=== PATIENT | male | born 1930 | race Caucasian/White ===

== ENCOUNTER 2017-03-28 13:09 | Inpatient (IN) | payer OTHER ==
[~2017-03-28] VITALS: Ht 160 cm; Wt 71.7 kg
[~2017-03-28 13:09] MED LIST: ACET-3820 PO; ATA25 PO; CLOP75TA PO; ESOM20EC PO; METO-50 PO; ORE25 PO; SIMV20TA1 PO; TRAZ-289 PO
[2017-03-28 13:23] VITALS: BP 113/61
--- NOTE | 2017-03-28 13:30 | NUR ---
PATIENT PRESENTS TO ED WITH brought in by SAMUEL Mehta from [facility] c/o general weakness, poor PO intake;hx OF AMS, Dementia, Impulse Disorder, Metabolic Encephalopathy, Htn;SKIN IS PINK/WARM/DRY;CONFUSE; TACHYCARDIC;PATIENT STATES PAIN OF 0/10 AT THIS TIME; PATIENT POSITIONED FOR COMFORT; HOB ELEVATED; BEDRAILS UP X2; BED DOWN. ALL MONITORS IN PLACED.
[2017-03-28] MEDS ORDERED: DEPSPR125 PO (13:32)
[2017-03-28] MEDS ORDERED: DOCU-264 PO (13:35)
[2017-03-28] MEDS ORDERED: TEMA15CA24 PO (13:35)
[2017-03-28] MEDS ORDERED: BENZ1TAB24 PO (13:35)
[2017-03-28 13:37] LABS: BASOPHILS # (AUTO) 0.4 K/uL (0.00-0.22); BASOPHILS % (AUTO) 3.1 % (0.0-2.0); EOSINOPHILS # (AUTO) 0.1 K/uL (0-0.4); EOSINOPHILS % (AUTO) 0.7 % (0.0-4.0); HEMATOCRIT 42.5 % (36-52); HEMOGLOBIN 13.8 g/dL (12.0-18.0); LYMPHOCYTES # (AUTO) 1.9 K/uL (2.0-11.5); LYMPHOCYTES % (AUTO) 15.5 % (20.5-51.1); MEAN CORPUSCULAR HEMOGLOBIN 32 pg (27-31); MEAN CORPUSCULAR HGB CONC 33 g/dL (33-37); MEAN CORPUSCULAR VOLUME 97 fL (80-94); MONOCYTES # (AUTO) 0.6 K/uL (0.8-1.0); NEUTROPHILS # (AUTO) 9.1 K/uL (1.8-7.7); NEUTROPHILS % (AUTO) 75.7 % (42.2-75.2); PLATELET COUNT (AUTO) 397 K/uL (140-450); RED BLOOD CELL COUNT(AUTO) 4.38 MIL/uL (4.20-6.10); RED CELL DISTRIBUTION WIDTH 13.1 % (11.6-13.7); WHITE BLOOD COUNT (AUTO) 12.1 K/uL (4.8-10.8)
[2017-03-28] MEDS ORDERED: MULT-1869 PO (13:38)
[2017-03-28] MEDS ORDERED: NACL 0.9% 1,000 ML IV ONE ×2 (13:50→15:20)
[2017-03-28 13:52] LABS: ANION GAP 16.8 (8-16); CALCIUM 8.7 mg/dL (8.5-10.1); CARBON DIOXIDE 23.8 mmol/L (21-32); CHLORIDE 103 mmol/L (98-107); CREATININE 1.1 mg/dL (0.7-1.3); GLUCOSE 135 mg/dL (74-106); POTASSIUM 4.6 mmol/L (3.5-5.1); SODIUM SERUM 139 mmol/L (136-145); UREA NITROGEN, BLOOD 22 mg/dL (7-18)
[2017-03-28 14:00] LABS: INR 1.1 (0.8-1.2); PARTIAL THROMBOPLASTIN TIME 30.9 secs (22-35.6); PROTHROMBIN TIME 11.2 secs (10.8-13.4)
[2017-03-28 14:11] LABS: ALANINE AMINOTRANSFERASE 23 U/L (16-63); ALBUMIN 2.7 g/dL (3.4-5.0); ALKALINE PHOSPHATASE 92 U/L (46-116); ASPARTATE AMINOTRANSFERASE 30 U/L (15-37); TOTAL BILIRUBIN 0.7 mg/dL (0.0-1.0); TOTAL PROTEIN, SERUM 9.4 g/dL (6.4-8.2)
[2017-03-28] MEDS ORDERED: cefTRIAXone 1,000 MG VIAL ONE (14:15)
[2017-03-28] MEDS ORDERED: AZITHROMYCIN 500 MG in DEXTROSE 5% 250 ML IV ONE (14:20)
[2017-03-28 14:26] LABS: LACTIC ACID 2.7 mmol/L (0.4-2.0)
--- NOTE | 2017-03-28 14:35 | NUR ---
PT SLEEPING;SAFETY MEASURES DONE;ALL MONIOTRS IN PLACED.WILL CONTINUE TO MONITOR PT.
[2017-03-28] MEDS ORDERED: AZITHROMYCIN 500 MG INJ VIAL IV ONE (14:59)
[2017-03-28 15:10] LABS: BILIRUBIN,URINE NEGATIVE (NEGATIVE); BLOOD, URINE 1+ (NEGATIVE); COLOR,URINE YELLOW (YELLOW); LEUKOCYTE ESTERASE ,URINE NEGATIVE (NEGATIVE); NITRITE, URINE NEGATIVE (NEGATIVE); PROTEIN,URINE 2+ (NEGATIVE); UGLUCOSE NEGATIVE (NEGATIVE)
--- NOTE | 2017-03-28 15:14 | NUR ---
PT C/O RIB PAIN, MD NOTIFIED FAMILY AT BEDSIDE, PT REMAINS TACHYCARDIA HR 150'S AFEBRILE DISPO IS ADMIT AWAITS AVAILABLE BED
[2017-03-28 15:19] LABS: APPEARANCE,URINE CLOUDY (CLEAR)
[2017-03-28 15:21] LABS: BACTERIA,URINE 4+ /HPF (None Seen); RBC,URINE 15-30 /HPF (0-5); SQUAMOUS EPITHELIAL CELL,UR 0-5 /LPF (0-3 (FEW))
[2017-03-28] MEDS ORDERED: NACL 0.9% 1,000 ML IV SCH (15:38)
[2017-03-28] MEDS ORDERED: ZOLPIDEM 5 MG TAB PO PRN (15:40)
[2017-03-28] MEDS ORDERED: MORPHINE SULFATE 2 MG/ML SYR IVP PRN ×2 (15:40→16:10)
[2017-03-28] MEDS ORDERED: DOCUSATE SODIUM 100 MG GELCAP PO PRN ×2 (15:40→16:10)
[2017-03-28] MEDS ORDERED: KETOROLAC 30 MG/ML VIAL IVP PRN ×2 (15:40→16:10)
[2017-03-28] MEDS ORDERED: oxyCODONE/APAP 5/325 MG 1 TAB TAB PO PRN ×4 (15:40→16:10)
[2017-03-28] MEDS ORDERED: LORazepam 1 MG TAB PO PRN ×2 (15:40→16:10)
[2017-03-28] MEDS ORDERED: ACETAMINOPHEN 325 MG TAB PO PRN ×2 (15:40→16:10)
[2017-03-28] MEDS ORDERED: HYDROmorphone 1 MG/ML AMP IVP PRN ×4 (15:40→16:10)
[2017-03-28] MEDS ORDERED: TEMAZEPAM 15 MG CAP PO PRN (15:40)
[2017-03-28] MEDS ORDERED: ONDANSETRON 4 MG/2 ML VIAL IM/IVP PRN ×2 (15:40→16:10)
[2017-03-28] MEDS ORDERED: HYDROcodone/APAP 7.5/325 MG 1 TAB PO PRN ×2 (15:40→16:10)
--- NOTE | 2017-03-28 15:50 | NUR ---
PT RESTING ON BED;FAMILY AT BEDSIDE;ALL MONITORS IN PLACED;DUANE ANDREW DISTRESS NOTED;WILL CONTINUE TO MONITOR PT.
[2017-03-28 16:20] VITALS: BP 132/81
--- NOTE | 2017-03-28 16:20 | NUR ---
PT ADMITTED FROM ER, AWAKE ALERT X1 WITH PERIODS OF CONFUSION, NO SIGNS OF ACUTE DISTRESS. WITH O2 AT 2L VIA NC. ELEVATED HOB AT LEAST 30 DEGREES. SKIN IS WARM AND DRY, OFFLOAD TO PRESSURE AREAS. NO EPISODE OF ANY NAUSEA OR VOMITING, REECE CATHETER IN PLACE WITH NOTED 400ML OF CLOUDY YELLOW URINE. DENIES OF ANY PAIN OR DISCOMFORT AT THIS TIME. ALL NEEDS ATTENDED, SAFETY PRECAUTIONS MAINTAINED. CALL LIGHT WITHIN REACH.
--- NOTE | 2017-03-28 16:24 | NUR ---
Patient will be admitted to care of DR PANTOJA. Admited to TELE. Will go to room 112 A. Belongings list completed. Report to IRIS HERNANDEZ.
[2017-03-28 16:48] LABS: BLOOD GAS BASE EXCESS -6.3 mmol/L (-2.0-2.0); BLOOD GAS HCO3 16.5 mmol/L; BLOOD GAS PCO2 25.8 mmHg (20-50); BLOOD GAS PH 7.425 (7.35-7.45); BLOOD GAS PO2 84.6 mmHg
[2017-03-28 16:49] LABS: BLOOD GAS O2 SAT% 96.3 % (92.0-98.5)
[2017-03-28] MEDS ORDERED: DIVALPROEX SPRINKLES 125 MG CAPDR PO SCH (17:00)
[2017-03-28 17:22] LABS: CHOL/HDL RATIO 4.7 (1-4.5); MAGNESIUM 2.1 mg/dL (1.8-2.4); PHOSPHORUS 3.4 mg/dL (2.5-4.9); THYROID STIMULATING HORMONE 1.91 uIU/mL (0.34-3.74)
[2017-03-28] MEDS: NACL 0.9% 1,000 ML IV SCH (17:37)
[2017-03-28] MEDS ORDERED: ALBUTEROL SULFATE/IPRATROPIU 3 ML SOL IH PRN (18:45)
[2017-03-28] MEDS ORDERED: LACTOBACILLUS RHAMNOSUS GG 1 EACH CAP PO SCH (19:00)
--- NOTE | 2017-03-28 19:28 | NUR ---
PT ALERT AND RESPONSIVE, NO SIGNS OF ACUTE DISTRESS. ENDORSED TO ONCOMING FOREST PATROLMAN NURSE FOR CONTINUITY OF CARE.
--- NOTE | 2017-03-28 19:29 | NUR ---
RECEIVED REPORT FROM DAY RN FOR CONTINUITY OF CARE. PATIENT IS ALERT & ORIENTED X1, DISCUSSED PLAN OF CARE WITH FAMILY MEMBERS AT BEDSIDE, VERBALIZED UNDERSTANDING. SHIFT ASSESSMENT DONE, VITAL SIGNS STABLE AT THIS TIME. NO S/S OF RESPIRATORY DISTRESS NOTED ON 2L NC. FLACC-0. IV TO RT AC FLUSHED AND PATENT, IV LT AC INFUSING FLUIDS WELL. REECE CATHETER IN PLACE DRAINING SWETA COLORED URINE TO GRAVITY. SAFETY/ FALL PRECAUTIONS ENFORCED, BED IN LOWEST POSITION WITH BED ALARM ON. WILL CONTINUE TO MONITOR FREQUENTLY.
[2017-03-28 20:00] VITALS: BP 152/78
[2017-03-28] MEDS: LEVOFLOXACIN 750 MG/D5W PREMIX 150 ML IV SCH (20:49)
--- NOTE | 2017-03-28 20:52 | NUR ---
DUE MEDICATIONS ADMINISTERED, TOLERATED WELL. PATIENT IS CONFUSED PULLING AT IV LINE, WRAPPED IN KERLIX AND REORIENTED PATIENT. WILL CONTINUE TO MONITOR FREQUENTLY.
[2017-03-28] MEDS ORDERED: NON-FORMULARY ITEM (Trazodone HCl 50 MG) PO SCH (21:00)
[2017-03-28] MEDS ORDERED: BENZTROPINE 1 MG TAB PO SCH (21:00)
[2017-03-28] MEDS ORDERED: traZODone 50 MG TAB PO SCH (21:00)
[2017-03-28] MEDS ORDERED: METOPROLOL 50 MG TAB PO SCH (21:00)
[2017-03-28] MEDS ORDERED: SIMVASTATIN 20 MG TAB PO SCH (21:00)
--- NOTE | 2017-03-28 22:10 | NUR ---
PATIENT SLEEPING AT THIS TIME, NO S/S OF DISTRESS NOTED. WILL CONTINUE TO MONITOR.
--- NOTE | 2017-03-28 23:45 | NUR ---
PATIENT HAD INCREASED SECRETIONS NOTED, PAGED RT FOR BREATHING TREATMENT AND SUCTION. PATIENT VITAL SIGNS STABLE. WILL CONTINUE TO MONITOR FREQUENTLY.
[2017-03-29] VITALS: BP 119/39
--- NOTE | 2017-03-29 00:05 | NUR ---
PATIENT HR DOWN TO 150'S B/P TRENDING UP, RT CALLED FOR BREATHING TX. WILL CONTINUE TO MONITOR. Addendum: 03/30/17 at 0241 by Rosalina Krishna RN DISREGARD, WRONG DATE.
[2017-03-29] MEDS: NACL 0.9% 1,000 ML IV SCH ×2 (00:51→06:54)
[2017-03-29] MEDS: CLINDAMYCIN 300 MG in DEXTROSE 5% 50 ML IV SCH ×4 (00:51→17:00)
--- NOTE | 2017-03-29 01:30 | NUR ---
SPOKE TO MD REGARDING PATIENT COUGH AND DIET ORDER, WILL FOLLOW OUT ORDERS GIVEN.
[2017-03-29] MEDS ORDERED: guaiFENesin/CODEINE 100/10MG 5 ML UDC PO PRN (01:40)
--- NOTE | 2017-03-29 03:58 | NUR ---
VITAL SIGNS STABLE. PATIENT HAS INTERMITTENT COUGH WITH THICK WHITE SECRETIONS NOTED. SAFETY PRECAUTIONS ENFORCED, WILL CONTINUE TO MONITOR.
[2017-03-29 04:00] VITALS: BP 142/76
[2017-03-29] MEDS ORDERED: ALBUTEROL SULFATE/IPRATROPIU 3 ML SOL IH PRN ×2 (05:45→06:08)
--- NOTE | 2017-03-29 05:45 | NUR ---
DR. MORRISON IN TO SEE PATIENT, NOTED PT LABORED BREATHING AND CONGESTION, NEW ORDERS RECEIVED WILL FOLLOW OUT GIVEN. PAGED RT FOR BREATHING TREATMENT.
[2017-03-29 06:30] LABS: HEMATOCRIT 32.9 % (36-52); HEMOGLOBIN 11.1 g/dL (12.0-18.0); MEAN CORPUSCULAR HEMOGLOBIN 32 pg (27-31); MEAN CORPUSCULAR HGB CONC 34 g/dL (33-37); MEAN CORPUSCULAR VOLUME 96 fL (80-94); PLATELET COUNT (AUTO) 269 K/uL (140-450); RED BLOOD CELL COUNT(AUTO) 3.41 MIL/uL (4.20-6.10); RED CELL DISTRIBUTION WIDTH 12.7 % (11.6-13.7); WHITE BLOOD COUNT (AUTO) 8.9 K/uL (4.8-10.8)
--- NOTE | 2017-03-29 06:30 | NUR ---
CALLED DR. MORRISON, INFORMED HER THAT HR UP TO 129, MD IN TO SEE PATIENT AND NEW ORDERS GIVEN.
--- NOTE | 2017-03-29 06:56 | NUR ---
ADMINISTERED LASIX PER MD ORDER. FAMILY MEMBERS AT BEDSIDE.
[2017-03-29] MEDS ORDERED: HYDROCHLOROTHIAZIDE 25 MG TAB PO SCH ×3 (07:00→09:00)
[2017-03-29] MEDS ORDERED: FUROSEMIDE 40 MG/4 ML VIAL IVP SCH (07:00)
[2017-03-29] MEDS ORDERED: METOPROLOL 50 MG TAB PO SCH (07:00)
[2017-03-29 07:09] LABS: ALANINE AMINOTRANSFERASE 15 U/L (16-63); ALBUMIN 2.1 g/dL (3.4-5.0); ALKALINE PHOSPHATASE 69 U/L (46-116); ASPARTATE AMINOTRANSFERASE 19 U/L (15-37); CALCIUM 7.7 mg/dL (8.5-10.1); CARBON DIOXIDE 21.8 mmol/L (21-32); CHLORIDE 107 mmol/L (98-107); CREATININE 0.8 mg/dL (0.7-1.3); GLUCOSE 125 mg/dL (74-106); POTASSIUM 3.8 mmol/L (3.5-5.1); SODIUM SERUM 138 mmol/L (136-145); TOTAL BILIRUBIN 0.5 mg/dL (0.0-1.0); TOTAL PROTEIN, SERUM 7.3 g/dL (6.4-8.2); UREA NITROGEN, BLOOD 18 mg/dL (7-18)
--- NOTE | 2017-03-29 07:20 | NUR ---
ENDORSED PATIENT TO DAY RN AT BEDSIDE FOR CONTINUITY OF CARE.
--- NOTE | 2017-03-29 07:30 | NUR ---
REPORT RECEIVED FROM TELECOM NETWORK MANAGER, PT AWAKE, ALERT, OX1, CONFUSED AT BASELINE PER FAMILY AT BEDSIDE, STATING "I WANT BEER" IN [place], RESP EVEN, SLIGHTLY INCREASED WORK OF BREATHING, ON 2L NC O2, OS SAT 97@, RR 28, HR 120S, PT AGGITATED, BREATHSOUNDS COARSE CRACKLES THRUOUT, + WET COUGHS, MD AT BEDSIDE, REECE DRAINING CLEAR LIGHT YELLOW URINE, PT MOVES ALL EXT, PLAN OF CARE DISCUSSED, FAMILY VERBALIZED FULL UNDERSTANDING, WILL CONTINUE TO MONITOR
[2017-03-29] MEDS: ALBUTEROL SULFATE/IPRATROPIU 3 ML SOL IH SCH ×4 (07:50→19:39)
[2017-03-29] MEDS: BUDESONIDE 0.5 MG/2 ML NEBU INH SCH ×2 (07:50→19:39)
[2017-03-29 08:00] VITALS: BP 124/78
[2017-03-29 08:04] LABS: BAND % (MANUAL) 5 % (0-8); LYMPHOCYTES % (MANUAL) 9 % (20-46); MONOCYTES % (MANUAL) 9 % (5-12); NEUTROPHILS % (MANUAL) 77 (43-65); PLATELET ESTIMATE ADEQUATE
[2017-03-29] MEDS: LACTOBACILLUS RHAMNOSUS GG 1 EACH CAP PO SCH (08:16)
[2017-03-29] MEDS: PANTOPRAZOLE 40 MG INJ VIAL IVP SCH (08:16)
[2017-03-29] MEDS: METOPROLOL 50 MG TAB PO SCH ×2 (08:17→21:00)
--- NOTE | 2017-03-29 08:25 | NUR ---
EKG DONE AT BEDSIDE
--- NOTE | 2017-03-29 08:30 | NUR ---
DUE MEDS GIVEN, PILLS CRUSHED PT RICARDO WELL WITH APPLESAUCE, EXTENDED RELEASE MEDS NOT CRUSHED/GIVEN, WILL CONSULT MD FOR LIQ FORM.
[2017-03-29] MEDS: guaiFENesin 600 MG TABER PO SCH ×2 (08:31→20:47)
[2017-03-29] MEDS: MULTIVITAMIN/MINERALS 1 TAB PO SCH (08:31)
[2017-03-29] MEDS ORDERED: NON-FORMULARY ITEM (Multivit-Min/Iron Fum/Folic AC (Multi-Vitamin-Minerals Tablet) 1 TAB) PO SCH (09:00)
[2017-03-29] MEDS ORDERED: PANTOPRAZOLE 40 MG INJ VIAL IVP SCH (09:00)
[2017-03-29] MEDS ORDERED: CLOPIDOGREL 75 MG TAB PO SCH (09:00)
[2017-03-29 09:09] LABS: T4 (THYROXINE) 5.8 ug/dL (4.5-12.0)
--- NOTE | 2017-03-29 09:15 | NUR ---
PATIENT HAS BEEN SCREENED AND CATEGORIZED HIGH NUTRITION RISK. PATIENT WILL BE SEEN WITHIN 1-2 DAYS OF ADMISSION. 03/29/17-03/30/[address]
[2017-03-29] MEDS ORDERED: ACETYLCYSTEINE 10% (100 MG/ML) 100 MG/ML VIAL INH PRN (09:30)
[2017-03-29 10:17] LABS: HEMOGLOBIN A1C 5.8 % (4.8-5.6)
--- NOTE | 2017-03-29 10:49 | NUR ---
PT SLEEPING QUIELTY RESP LESS LABORIOUS, PT APPEARS IN NAD, HR DECREASED TO 108, PT REMAINS ON 2L NC 97% O2 SAT, FAMILY AT BEDSIDE, WILL CONTINUE TO MONITOR.
[2017-03-29] MEDS: DIVALPROEX SPRINKLES 125 MG CAPDR PO SCH ×3 (11:41→17:00)
[2017-03-29] MEDS: BENZTROPINE 1 MG TAB PO SCH ×2 (11:42→20:50)
[2017-03-29] MEDS: CLOPIDOGREL 75 MG TAB PO SCH (11:43)
--- NOTE | 2017-03-29 11:45 | NUR ---
ECHO PROCEDURE IN PROGRESS SUPERVISOR GRAIN AND YEAST PLANTS TO ATTEMPT HHN THERAPY AT AT LATER TIME NO SOB NOTED
[2017-03-29 12:00] VITALS: BP 133/81
--- NOTE | 2017-03-29 12:03 | NUR ---
REPEAT SPUTUM COLLECTION REQUESTED BY ALFREDO/RN RN AT BEDSIDE FOR ASSIST PRE AND POST OXYGENATION USED STERILE TECHNIQUE APPLIED LUBRICANT TO THE TIP OF A 14 FR SUCTION CATHETER INSERTION INTO LEFT NARES X2 OBTAINED LARGE THICK YELLOW WITH BLOOD TINGE SECRETIONS TOLERATED PROCEDURE WELL WITHOUT INCIDENT NOTED SPUTUM SAMPLE GIVEN TO ALFREDO/RN TO PROCESSING TO LAB
--- NOTE | 2017-03-29 12:16 | NUR ---
03/29/17 RD INITIAL ASSESSMENT COMPLETED PLEASE REFER TO NUTRITION ASSESSMENT UNDER CARE ACTIVITY FOR ESTIMATED NUTRITIONAL NEEDS. 1. CONTINUE PUREED, CARDIAC DIET 2. RECOMMEND HEALTHSHAKE TID AT MEAL TIMES 3. RD TO FOLLOW-UP 2-3 DAYS; HIGH RISK EPI BARLOW, ARABELLA
--- NOTE | 2017-03-29 12:24 | NUR ---
SUCTIONED BY RT, SPUTUM CULTURE COLLECTED.
--- NOTE | 2017-03-29 14:02 | NUR ---
DIAPER CHANGED, PERICARE DONE, PT POSITIONED FOR COMFORT, ORAL SUCTIONED THICK SPUTUM, AT BEDSIDE, WILL CONTINUE TO MONITOR.
[2017-03-29] MEDS ORDERED: VANCOMYCIN PER PHARMACY MC PRN (15:10)
--- NOTE | 2017-03-29 15:22 | NUR ---
DR THOMAS AT BEDSIDE, MD AWARE OF INCREASED HR 120'S, PT RESTING QUIETLY, REP EVEN SLIGHTLY LABORED, 97% 2L NC, FAMILY AT BEDSIDE, WILL CONTINUE TO MONITOR.
[2017-03-29 16:00] VITALS: BP 123/78
--- NOTE | 2017-03-29 17:07 | NUR ---
TA TEMP NORMAL BUT PT WARM TO TOUCH, SLIGHTLY SWEATY, HR INCREASED TO 130'S, PT MAYBE IN PAIN PER FAMILY, NORCO GIVEN, PT RICARDO MED WITH APPLESAUCE WELL, DIAPER CHANGED, WILL CONTINUE TO MONITOR
--- NOTE | 2017-03-29 18:09 | NUR ---
PT RESTING/SLEEPING QUIETLY, RESP EVEN UNLABORED NOW, REMAINS ON 2L NC, O2 SAT 97%, HR DOWN TO LOW 120'S, FAMILY AT BEDSIDE, CALL INTERIANO WITHIN REACH, WILL CONTINUE TO MONITOR.
--- NOTE | 2017-03-29 19:25 | NUR ---
REPORT GIVEN TO TOW MOTOR DRIVER NURSE, PT IN STABLE CONDITION.
--- NOTE | 2017-03-29 19:26 | NUR ---
RECEIVED REPORT FROM DAY RN FOR CONTINUITY OF CARE. PATIENT IS ALERT & ORIENTED X1, DISCUSSED PLAN OF CARE WITH FAMILY MEMBERS AT BEDSIDE. SHIFT ASSESSMENT DONE, VITAL SIGNS STABLE AT THIS TIME. PATIENT HAS LABORED BREATHING ON 3L NC WITH O2 SAT BETWEEN 94-98%, MD AWARE. FLACC-0. IV TO RT AC FLUSHED AND PATENT, IV LT AC INFUSING FLUIDS WELL. REECE CATHETER IN PLACE DRAINING CLEAR YELLOW URINE TO GRAVITY. SAFETY/ FALL PRECAUTIONS ENFORCED, BED IN LOWEST POSITION WITH BED ALARM ON. WILL CONTINUE TO MONITOR FREQUENTLY.
[2017-03-29 20:00] VITALS: BP 108/52
[2017-03-29] MEDS: SIMVASTATIN 20 MG TAB PO SCH (20:50)
[2017-03-29] MEDS: traZODone 50 MG TAB PO SCH (20:50)
--- NOTE | 2017-03-29 20:52 | NUR ---
DUE MEDICATIONS ADMINISTERED, TOLERATED WELL. PATIENT TURNED AND REPOSITIONED HR AT 124, O2 SAT AT 98%. SPOKE TO DR. SMITH ABOUT ORDER FOR REPEAT SPUTUM. WILL CONTINUE TO MONITOR.
[2017-03-29] MEDS ORDERED: TEMAZEPAM 15 MG CAP PO PRN (21:00)
--- NOTE | 2017-03-29 23:05 | NUR ---
ELEVATED HR NOTED AT 177, B/P AT 88/46, O2 AT 92%, DR SMITH NOTIFIED. PATIENT AWAKE BUT DROWSY. MD TO SEE PATIENT. AWAITING ORDERS PER MD.
[2017-03-29] MEDS ORDERED: METOPROLOL 5 MG/5 ML VIAL IVP SCH (23:10)
[2017-03-29] MEDS ORDERED: METOPROLOL 5 MG/5 ML VIAL IVP ONE (23:30)
[2017-03-29] MEDS ORDERED: NACL 0.9% 500 ML IV ONE (23:30)
--- NOTE | 2017-03-29 23:38 | NUR ---
RECEIVED ORDERS FROM DR. SMITH, ADMINISTERED METOPROLOL AND IVF BOLUS. HR IN 170'S AND B/P NOTED AT 89/50 MD AWARE. WILL CONTINUE TO MONITOR FREQUENTLY.
[2017-03-30] VITALS: BP 95/58
--- NOTE | 2017-03-30 00:05 | NUR ---
PATIENT HR DOWN TO 150'S B/P TRENDING UP, RT CALLED FOR BREATHING TX. WILL CONTINUE TO MONITOR.
[2017-03-30] MEDS ORDERED: ALBUTEROL SULFATE/IPRATROPIU 3 ML SOL IH PRN (00:10)
[2017-03-30] MEDS ORDERED: METOPROLOL 5 MG/5 ML VIAL IVP SCH (00:15)
[2017-03-30] MEDS: CLINDAMYCIN 300 MG in DEXTROSE 5% 50 ML IV SCH ×4 (00:30→17:45)
--- NOTE | 2017-03-30 00:30 | NUR ---
DUE ANTIBIOTICS ADMINISTERED. HR NOW IN THE 120'S. O2 SAT AT 95% ON 4L. WILL CONTINUE TO MONITOR FREQUENTLY.
[2017-03-30] MEDS: NACL 0.9% 1,000 ML IV SCH ×3 (01:05→22:35)
--- NOTE | 2017-03-30 02:10 | NUR ---
PATIENT RESTING AT THIS TIME, HR 129, O2 SAT 98% ON 4L NC. WILL CONTINUE TO MONITOR FREQUENTLY.
--- NOTE | 2017-03-30 02:47 | NUR ---
INFORMED BY STEEL CRANE OPERATOR THAT HR UP TO 180, ASSESSED PATIENT B/P AT 91/57. PAGED DR SMITH FOR ORDERS, WILL FOLLOW OUT GIVEN.
[2017-03-30] MEDS ORDERED: DILTIAZEM 25 MG/5 ML VIAL IVP ONE (02:50)
[2017-03-30] MEDS ORDERED: NACL 0.9% 500 ML IV SCH (02:50)
--- NOTE | 2017-03-30 02:56 | NUR ---
ADMINISTERED MEDICATION PER MD ORDER, HR NOW DOWN TO 161 B/P 106/59. WILL CONTINUE TO MONITOR FREQUENTLY.
[2017-03-30] MEDS: DILTIAZEM 25 MG/5 ML VIAL IVP ONE ×2 (02:57→02:59)
[2017-03-30 04:00] VITALS: BP 100/60
--- NOTE | 2017-03-30 04:05 | NUR ---
VITAL SIGNS TAKEN, HR 123, B/P 100/60. PATIENT RESTING IN BED. WILL CONTINUE TO MONITOR.
--- NOTE | 2017-03-30 05:39 | NUR ---
DUE MEDICATIONS ADMINISTERED. PT HR AT 124, O2 SAT > 96%. WILL CONTINUE TO MONITOR FREQUENTLY.
[2017-03-30 06:50] LABS: HEMOGLOBIN 11.8 g/dL (12.0-18.0); MEAN CORPUSCULAR HEMOGLOBIN 32 pg (27-31); MEAN CORPUSCULAR HGB CONC 34 g/dL (33-37); MEAN CORPUSCULAR VOLUME 96 fL (80-94); PLATELET COUNT (AUTO) 355 K/uL (140-450); RED BLOOD CELL COUNT(AUTO) 3.66 MIL/uL (4.20-6.10); RED CELL DISTRIBUTION WIDTH 12.9 % (11.6-13.7); WHITE BLOOD COUNT (AUTO) 11.9 K/uL (4.8-10.8)
[2017-03-30 07:16] LABS: BAND % (MANUAL) 2 % (0-8); EOSINOPHILS % (MANUAL) 2 % (0-4); LYMPHOCYTES % (MANUAL) 12 % (20-46); MONOCYTES % (MANUAL) 5 % (5-12); NEUTROPHILS % (MANUAL) 79 (43-65)
[2017-03-30] MEDS: BUDESONIDE 0.5 MG/2 ML NEBU INH SCH ×2 (07:21→19:40)
[2017-03-30] MEDS: ALBUTEROL SULFATE/IPRATROPIU 3 ML SOL IH SCH ×4 (07:21→19:40)
--- NOTE | 2017-03-30 07:35 | NUR ---
ENDORSED PATIENT TO DAY RN AT BEDSIDE FOR CONTINUITY OF CARE.
--- NOTE | 2017-03-30 07:36 | NUR ---
RECEIVED PT FROM HUMAN RESOURCES GENERALIST NURSE AT BEDSIDE. PT IS AWAKE A&OX1. PT HAS VERY LOUD BREATHING. NPO EXCEPT MEDS AT THIS TIME. RT AT BEDSIDE PERFORMING TX. O2 96%. PT'S LEFT IV INFILTRATED, REMOVED CANNULA INTACT PT TOLERATED WELL. DAUGHTER AND AT BEDSIDE VISITING. CALL LIGHT WITHIN REACH. WILL CONTINUE TO MONITOR.
[2017-03-30] MEDS ORDERED: VANCOMYCIN PER PHARMACY MC PRN (07:55)
[2017-03-30 08:00] VITALS: BP 118/73
--- NOTE | 2017-03-30 08:05 | NUR ---
ABG ATTEMPT X2 WITH REDIRECTION MINIMAL SAMPLE OBTAIN GOOD PUNCTURE SITE SAMPLE PROCESSED WITH INSERTER PROMOTIONAL ITEM REJECTION DUE TO INVALID pO2 LEVEL AND SATURATION REFERRED SECONDARY ABG ATTEMPT TO Rafael NÚÑEZ, STAFF WILDER Addendum: 03/30/17 at 1418 by Ky Leggett RT FAMILY MEMBERS AT BEDSIDE: SPOUSE AND DAUGHTER
--- NOTE | 2017-03-30 08:10 | NUR ---
CALLED LAB TO NOTIFY STAT LABS ORDERED BY
--- NOTE | 2017-03-30 08:15 | NUR ---
SECONDARY ABG ATTEMPT OBTAINED BY Rafael NÚÑEZ RCP STAFF THERAPIST SAMPLE PROCESSED BY Angie CERON RCP STAFF THERAPIST SAMPLE ACCEPTED
[2017-03-30 08:17] LABS: ANION GAP 12.2 (8-16); CARBON DIOXIDE 25.2 mmol/L (21-32); CHLORIDE 103 mmol/L (98-107); CREATININE 1.2 mg/dL (0.7-1.3); GLUCOSE 132 mg/dL (74-106); POTASSIUM 3.4 mmol/L (3.5-5.1); SODIUM SERUM 137 mmol/L (136-145); UREA NITROGEN, BLOOD 24 mg/dL (7-18)
--- NOTE | 2017-03-30 08:25 | NUR ---
CALLED DR. ABRAM THOMAS ([phone]) TO REVIEW AB SAMPLE REPORT
--- NOTE | 2017-03-30 08:30 | NUR ---
CALL BACK FROM DR. ABRAM THOMAS REVIEWED ABG SAMPLE REPORT NO NEW ORDERS MD STATES VIA PHONE "OKAY, JUST MONITOR PATIENT" KATHY/BRITTON RN LINE MAINTENANCE TECHNICIAN NOTIFIED
[2017-03-30] MEDS: PANTOPRAZOLE 40 MG INJ VIAL IVP SCH (08:43)
[2017-03-30] MEDS: BENZTROPINE 1 MG TAB PO SCH ×2 (08:44→21:20)
[2017-03-30] MEDS: LACTOBACILLUS RHAMNOSUS GG 1 EACH CAP PO SCH (08:44)
[2017-03-30] MEDS: METOPROLOL 25 MG TAB PO SCH ×2 (08:44→21:20)
[2017-03-30] MEDS: guaiFENesin 600 MG TABER PO SCH ×2 (08:44→21:20)
[2017-03-30] MEDS: MULTIVITAMIN/MINERALS 1 TAB PO SCH (08:45)
[2017-03-30] MEDS: DIVALPROEX SPRINKLES 125 MG CAPDR PO SCH ×3 (08:45→17:00)
[2017-03-30] MEDS: CLOPIDOGREL 75 MG TAB PO SCH (08:45)
--- NOTE | 2017-03-30 09:00 | NUR ---
PT TOOK METOPROLOL BUT REFUSED TO TAKE MORE MEDS. MEDS CRUSHED IN APPLE SAUCE BUT PT IS NOT FOLLOWING COMMANDS AT THIS TIME. WILL TRY LATER.
[2017-03-30] MEDS: VANCOMYCIN 750 MG in DEXTROSE 5% 250 ML IV SCH (10:18)
--- NOTE | 2017-03-30 11:10 | NUR ---
SPOKE TO DR. MORRISON REGARDING PT'S DROWSY STATE AND INABILITY TO FINISH MORNING MEDS AT THIS TIME. SPOKE TO REGARDING LOW POTASSIUM LEVEL OF 3.4. FAMILY AT BEDSIDE. CALL LIGHT WITHIN REACH. WILL CONTINUE TO MONITOR.
--- NOTE | 2017-03-30 11:35 | NUR ---
FAMILY MEMBERS AT BEDSIDE: SPOUSE, SON AND DAUGHTER IN-LAW
[2017-03-30 12:00] VITALS: BP 102/65
[2017-03-30] MEDS ORDERED: KCL 20 MEQ/WATER INJ PREMIX 100 ML IV SCH (12:00)
--- NOTE | 2017-03-30 12:49 | NUR ---
FAMILY MEMBERS AT BEDSIDE: SPOUSE, SON AND DAUGHTER IN-LAW
--- NOTE | 2017-03-30 12:57 | NUR ---
PT IS HARD TO AWAKE. NO DISTRESS NOTED. BP STABLE. O2 SAT 100%. CALL LIGHT WITHIN REACH. WILL CONTINUE TO MONITOR.
--- NOTE | 2017-03-30 13:00 | NUR ---
1300 MED NOT GIVEN. PT IS TOO DROWSY TO TAKE MED.
--- NOTE | 2017-03-30 14:25 | NUR ---
REPOSITIONED PT. PT TOLERATED WELL. CALL LIGHT WITHIN REACH. WILL CONTINUE TO MONITOR.
--- NOTE | 2017-03-30 15:31 | NUR ---
AIREEN/SPEECH PATHOLOGIST AT BEDSIDE FOR SWALLOW EVALUATION FOREMENTIONED REQUEST DATA ANALYTICS SPECIALIST STANDBY
--- NOTE | 2017-03-30 15:46 | NUR ---
FAMILY MEMBERS AT BEDSIDE: SPOUSE, SON AND DAUGHTER
[2017-03-30 16:00] VITALS: BP 124/66
--- NOTE | 2017-03-30 16:08 | NUR ---
* ST NOTE * Pt seen at bedside with family, RT and Nsg present. Bedside dysphagia and oral mechanism exams completed. See evaluation report for further details. Pt requiring maximal verbal and tactile stimulation and cueing to be aroused/awakened. Pt then variably alert, appearing increasingly lethargic at this time. Pt accepting 1/3 alternating PO trials of puree apple sauce 1-3 CCs at a time via a spoon as well as 1/3 alternating PO trials of honey-thick apple juice 1-3 CCs at a time via a spoon, but demonstrating no swallow initation, no laryngeal elevation or excursion at this time, despite maximal verbal, tactile & visual cues from the clinician, RT or nsg. Pt and caregivers/family and nsg education completed regarding safe swallow compensatory strategies pt and caregivers/nsg/family may utilize to aid pt with swallow function as well as with maintaining oral care, with pt appearing indifferent to clinician's remarks due to lethargy but with caregivers/family and Nsg verbalizing understanding and agreeance with clinician's recommendations. It is thus recommended pt remain NPO at this time secondary to poor tolerance and participation with PO intake, and it is also recommended pt receive skilled STAFF PHYSICIAN services to further address tolerance for PO intake and to further address swallow function, with caregivers/family/nsg agreeable with clinician's recommendations. Lastly pt and caregivers/family education completed regarding options for alternative means of nutrition to maintain adequate nutrition & hydration while pt is unable to do so by PO intake, with pt's caregivers/family verbalizing understanding of clinician's recommendations. Pt's family requesting further time to make a decision, with clinician agreeable with pt's family's request. ST to follow up 2-3x in next 1 week. Pt, caregivers/family, caregivers/RT and caregivers/Nsg education completed regarding results of evaluation; benefits of abiding by NPO status and receiving skilled STAFF PHYSICIAN services; POC; and prognosis for improvement; with pt and caregivers/family and caregivers/RT and Nsg verbalizing understanding and agreeance with clinician's recommendations. Recommend: - Continue NPO status - May attempt to provide pt with medications PO crushed in Puree textures - Suction PRN - Complete oral care daily - RD Referral for alternative means of nutrition pending pt's family's wishes secondary to pt unable to tolerate PO intake at this time, putting pt at high risk for malnutrition/dehydration - Refer to Executive Administrator for family to re-assess pt's code status as well as POLST ST to follow up 1-3x in next 1 week to further assess tolerance for PO intake and swallow function. G8996 CM G8997 CM NOMS Level 6 Time In/Out 15:10 - 16:10 Addendum: 03/30/17 at [address] for consultation with pt's caregivers/family regarding alternative means of nutrition such as g-tube, NGT, and TPN secondary to pt's poor tolerance of PO intake at this time.
--- NOTE | 2017-03-30 17:00 | NUR ---
1700 MED NOT GIVEN DUE TO PT NOT AWAKE ENOUGH TO TAKE ORAL MED.
--- NOTE | 2017-03-30 19:27 | NUR ---
ENDORSED CARE OF PT TO RIBBON SWEATBAND OPERATOR NURSE AT BEDSIDE. PT IN STABLE CONDITION.
--- NOTE | 2017-03-30 19:28 | NUR ---
RECEIVED REPORT, ASSUMED CARE. PT SLEEPING,AROUSABLE TO TACTILE AND PAIN STIMULI. RESPIRATION EVEN AND UNLABORED, NO SOB, NO S/S OF RESPIRATORY DISTRESS AT THIS TIME. O2 AT 3L VIA NASAL CANNULA. FAMILY VISITING AT BEDSIDE.REECE CATH IN PLACE, DRAINING YELLOW URINE OUTPUT. IVF NS INFUSING WELL AT 60ML/HR. IV ACCESS TO LT AC GAUGE 20. ALL NEEDS ANTICIPATED. CALL LIGHT WITHIN REACH. DISCUSSED PLAN CARE TO DIONNA (DAUGHTER), SHE VERBALIZED UNDERSTANDING. WILL CONTINUE TO MONITOR.
[2017-03-30 20:00] VITALS: BP 109/59
--- NOTE | 2017-03-30 20:00 | NUR ---
PT OBSERVED INTERMITTENTLY COUGHING( NONPRODUCTIVE). HOB ELEVATED TO SEMI ARELLANO'S POSITION. SUCTIONED PT, OBTAINED MINIMAL THIN CLEAR SECRETIONS. PT TOLERATED PROCEDURE. WILL CONTINUE TO MONITOR.
[2017-03-30] MEDS: LEVOFLOXACIN 750 MG/D5W PREMIX 150 ML IV SCH (21:13)
[2017-03-30] MEDS: SIMVASTATIN 20 MG TAB PO SCH (21:19)
[2017-03-30] MEDS: traZODone 50 MG TAB PO SCH (21:20)
--- NOTE | 2017-03-30 21:20 | NUR ---
ALL HS MEDS HELD, PT AWAKE BUT DROWSY AT THIS TIME. PT VERBALLY RESPONSIVE BUT MAKES NONSENSICAL STATEMENTS. UNABLE TO TOLERATE SMALL AMOUNT OF APPLE SAUCE. CONTINUE ON COOLING MEASURES. INFORMED DIONNA (DAUGHTER), SHE VERBALIZED UNDERSTANDING. KEPT CLEAN AND DRY. WILL CONTINUE TO MONITOR.
--- NOTE | 2017-03-30 22:30 | NUR ---
PT REPOSITIONED AND TURNED TO LEFT SIDE. WILL CONTINUE TO MONITOR.
--- NOTE | 2017-03-30 22:44 | NUR ---
PT FULLY AWAKE AT THIS TIME, MUMBLING AND TALKING TO SELF NONSENSICALLY. NO S/S OF RESPIRATORY DISTRESS AT THIS TIME. KEPT CLEAN AND DRY. Q2H TURNING DONE. INTERMITTENTLY COUGHING WITH CONGESTION. SUCTIONED PRN. WILL CONTINUE TO MONITOR.
[2017-03-31] VITALS (11 sets, daily range): BP systolic 101–133; BP diastolic 52–75
[2017-03-31] MEDS: CLINDAMYCIN 300 MG in DEXTROSE 5% 50 ML IV SCH ×4 (00:19→17:55)
--- NOTE | 2017-03-31 00:27 | NUR ---
PT SLEEPING, AROUSABLE TO NAME AND TACTILE STIMULI. BREATHING EVEN AND UNLABORED.NO S/S OF RESPIRATORY DISTRESS AT THIS TIME. PT OBSERVED INTERMITTENTLY TALKING TO HIMSELF.CONTINUE ON Q2H TURNING. PT FACING RIGHT SIDE. WILL CONTINUE TO MONITOR.
[2017-03-31 05:55] LABS: BASOPHILS # (AUTO) 0.1 K/uL (0.00-0.22); BASOPHILS % (AUTO) 0.6 % (0.0-2.0); EOSINOPHILS # (AUTO) 0.2 K/uL (0-0.4); HEMATOCRIT 32.9 % (36-52); HEMOGLOBIN 11.1 g/dL (12.0-18.0); LYMPHOCYTES # (AUTO) 0.8 K/uL (2.0-11.5); LYMPHOCYTES % (AUTO) 9.9 % (20.5-51.1); MEAN CORPUSCULAR HEMOGLOBIN 33 pg (27-31); MEAN CORPUSCULAR HGB CONC 34 g/dL (33-37); MEAN CORPUSCULAR VOLUME 98 fL (80-94); MONOCYTES # (AUTO) 0.6 K/uL (0.8-1.0); MONOCYTES % (AUTO) 6.8 % (1.7-9.3); NEUTROPHILS # (AUTO) 6.7 K/uL (1.8-7.7); NEUTROPHILS % (AUTO) 80.7 % (42.2-75.2); PLATELET COUNT (AUTO) 353 K/uL (140-450); RED BLOOD CELL COUNT(AUTO) 3.37 MIL/uL (4.20-6.10); RED CELL DISTRIBUTION WIDTH 13.3 % (11.6-13.7); WHITE BLOOD COUNT (AUTO) 8.4 K/uL (4.8-10.8)
[2017-03-31 06:13] LABS: ANION GAP 12.3 (8-16); CARBON DIOXIDE 24.3 mmol/L (21-32); CHLORIDE 104 mmol/L (98-107); CREATININE 1.1 mg/dL (0.7-1.3); GLUCOSE 107 mg/dL (74-106); POTASSIUM 3.6 mmol/L (3.5-5.1); SODIUM SERUM 137 mmol/L (136-145); UREA NITROGEN, BLOOD 26 mg/dL (7-18)
[2017-03-31] MEDS: ALBUTEROL SULFATE/IPRATROPIU 3 ML SOL IH SCH (06:50)
[2017-03-31] MEDS: BUDESONIDE 0.5 MG/2 ML NEBU INH SCH ×2 (06:50→18:56)
--- NOTE | 2017-03-31 07:17 | NUR ---
PT SLEEPING, AROUSABLE TO TACTILE STIMULI. NO FACIAL GRIMACING OR MOANING INDICATING PAIN. NO S/S OF RESPIRATORY DISTRESS AT THIS TIME. ENDORSED TO NEXT SHIFT FOR CONTINUITY OF CARE. PT IN STABLE CONDITION.
--- NOTE | 2017-03-31 07:18 | NUR ---
RECEIVED PT FROM FRUIT INSPECTOR NURSE AT BEDSIDE. PT IS SLEEPING. DAUGHTER AT BEDSIDE. VS STABLE, HR 125. PT IS HARD TO AROUSE. PT IS ON NC 2L O2 SATURATION 95%. NO DISTRESS NOTED. CALL LIGHT WITHIN REACH. WILL CONTINUE TO MONITOR.
--- NOTE | 2017-03-31 07:33 | NUR ---
FOUND PT ON 3L NC SPO2 99%. TITRATED TO 2L NC PT NOT SOB AND NOT IN RESPIRATORY DISTRESS AT THIS TIME.
[2017-03-31] MEDS: BENZTROPINE 1 MG TAB PO SCH (09:00)
[2017-03-31] MEDS: MULTIVITAMIN/MINERALS 1 TAB PO SCH (09:00)
[2017-03-31] MEDS: guaiFENesin 600 MG TABER PO SCH (09:00)
[2017-03-31] MEDS: LACTOBACILLUS RHAMNOSUS GG 1 EACH CAP PO SCH (09:00)
[2017-03-31] MEDS: CLOPIDOGREL 75 MG TAB PO SCH (09:00)
[2017-03-31] MEDS: DIVALPROEX SPRINKLES 125 MG CAPDR PO SCH ×2 (09:00→13:00)
[2017-03-31] MEDS: METOPROLOL 25 MG TAB PO SCH (09:00)
--- NOTE | 2017-03-31 09:10 | NUR ---
SPOKE TO DR. MORRISON REGARDING PT'S HR OF 129.
[2017-03-31] MEDS: PANTOPRAZOLE 40 MG INJ VIAL IVP SCH (09:31)
--- NOTE | 2017-03-31 09:45 | NUR ---
UKE OPERATOR NOTIFIED NURSE PT'S HR 173 SVT.
--- NOTE | 2017-03-31 09:47 | NUR ---
SPOKE TO DR. PORRAS REGARDING PT'S SVT. WILL PUT IN ORDER.
--- NOTE | 2017-03-31 09:53 | NUR ---
EKG RESULT GIVEN TO DR. PORRAS.
--- NOTE | 2017-03-31 10:17 | NUR ---
CARDIZEM GIVEN IV PUSH.
--- NOTE | 2017-03-31 10:27 | NUR ---
PT ON NC O2 4 L NOW, OXYGEN SAT 93%. HR 128. FAMILY AT BEDSIDE.
[2017-03-31] MEDS: VANCOMYCIN 750 MG in DEXTROSE 5% 250 ML IV SCH (10:29)
--- NOTE | 2017-03-31 10:50 | NUR ---
SPOKE TO NURSE TO HOLD THE NEW ORDER OF CARDIZEM 5MG NOW. WILL NOTIFY NURSE WHEN TO GIVE MED.
--- NOTE | 2017-03-31 11:02 | NUR ---
PT BP 113/61, HR 131. WILL CONTINUE TO MONITOR CLOSELY.
--- NOTE | 2017-03-31 11:03 | NUR ---
Social Service Note: I faxed patient's information to [facility] , no discharge order at this time.
[2017-03-31] MEDS ORDERED: DILTIAZEM 25 MG/5 ML VIAL IVP SCH (11:30)
[2017-03-31] MEDS ORDERED: DILTIAZEM 125 MG in DEXTROSE 5% 100 ML IV SCH (11:40)
[2017-03-31] MEDS ORDERED: METOPROLOL 5 MG/5 ML VIAL IVP SCH ×2 (12:19→18:00)
[2017-03-31] MEDS ORDERED: ACETYLCYSTEINE 10% (100 MG/ML) 100 MG/ML VIAL INH PRN (12:40)
[2017-03-31 12:44] LABS: BLOOD GAS HCO3 21.1 mmol/L; BLOOD GAS PCO2 34.5 mmHg (20-50); BLOOD GAS PH 7.405 (7.35-7.45); BLOOD GAS PO2 54.4 mmHg
[2017-03-31 12:45] LABS: BLOOD GAS BASE EXCESS -2.9 mmol/L (-2.0-2.0); BLOOD GAS O2 SAT% 88.3 % (92.0-98.5)
--- NOTE | 2017-03-31 12:50 | NUR ---
PT'S O2 SAT DROPPED TO 88%. RT GAVE BREATHING TX. BACK UP TO O2 SAT OF 93% ON NC 4L.
[2017-03-31] MEDS ORDERED: MIDAZOLAM 2 MG/2 ML VIAL ONE (12:52)
[2017-03-31] MEDS ORDERED: fentaNYL 0.05 MG/ML VIAL ONE ×2 (12:52→14:33)
--- NOTE | 2017-03-31 13:00 | NUR ---
BP 100/61, HR 110 AT THIS TIME.
--- NOTE | 2017-03-31 13:27 | NUR ---
03/31/17 RD FOLLOW-UP ASSESSMENT COMPLETED PLEASE REFER TO NUTRITION ASSESSMENT UNDER CARE ACTIVITY FOR ESTIMATED NUTRITIONAL NEEDS. 1. WHEN MEDICALLY FEASIBLE, CONSIDER TF: FIBERSOURCE HN - TO START SLOW AT 30 ML/HR, ADVANCE 10 ML Q8H TO A GOAL RATE OF 70 ML/HR (PROVIDES 2016 KCAL, 90 G PROTEIN, 1357 ML FREE WATER - MEETS 93% KCAL + 83% PROTEIN ESTIMATED NEEDS) 2. RD TO FOLLOW-UP 2-3 DAYS; HIGH RISK EPI BARLOW, ARABELLA
--- NOTE | 2017-03-31 14:20 | NUR ---
OR NURSES TOOK PT TO OR ROOM. PT'S VS STABLE. HR 120, BP 113/66.
[2017-03-31] MEDS ORDERED: diphenhydrAMINE 50 MG/ML VIAL ONE (14:33)
[2017-03-31] MEDS: MIDAZOLAM 2 MG/2 ML VIAL ONE ×2 (14:37→14:51)
[2017-03-31] MEDS: fentaNYL 0.05 MG/ML VIAL ONE ×2 (14:37→14:49)
[2017-03-31] MEDS: FLUMAZENIL 0.5 MG/5 ML VIAL IVP ONE ×4 (14:59→16:21)
[2017-03-31] MEDS ORDERED: DILTIAZEM 25 MG/5 ML VIAL IVP PRN (15:00)
[2017-03-31] MEDS: ALBUTEROL 0.083% 2.5 MG/3 ML NEBU INH SCH ×2 (15:00→18:56)
[2017-03-31] MEDS: NALOXONE 0.4 MG/ML VIAL ONE ×3 (15:01→16:21)
[2017-03-31] MEDS: NACL 0.9% 1,000 ML IV SCH (15:15)
--- NOTE | 2017-03-31 15:25 | NUR ---
CALLED TO OR BEDSIDE DURING PROCEDURE BY DR ZAMORANO, PERFORMED NT SUCTION TO CLEAR SECRETIONS, WILL CONTINUE TO MONITOR FOR SECRETIONS ON THE FLOOR
[2017-03-31] MEDS ORDERED: ACETAMINOPHEN 650 MG/20.3 ML UDC NG PRN (16:30)
[2017-03-31] MEDS ORDERED: TEMAZEPAM 15 MG CAP NG PRN (16:30)
[2017-03-31] MEDS ORDERED: HYDROcodone/APAP 7.5/325 MG 1 TAB NG PRN (16:30)
[2017-03-31] MEDS ORDERED: LORazepam 1 MG TAB NG PRN (16:30)
[2017-03-31] MEDS ORDERED: DIVALPROEX SPRINKLES 125 MG CAPDR NG SCH (17:00)
--- NOTE | 2017-03-31 17:42 | NUR ---
RECEIVED PT FROM OR NURSE. PT IS ON 4 L NON-REBREATHER OXY SAT 90%, CALLED RT. PUT PT ON 15L NON-REBREATHER. PT SAT 93%. PT HAS NG TUBE IN PLACE. PT HAS HEAVY COARSE BREATHING. VS STABLE, HR 120S. WILL MONITOR CLOSELY.
--- NOTE | 2017-03-31 18:10 | NUR ---
CALLED RT AGAIN FOR SUCTIONING. PT O2 92% AT THIS TIME. EXPLAINED TO PT'S FAMILY PLAN OF CARE. WILL MONITOR CLOSELY.
[2017-03-31] MEDS ORDERED: SCOPOLAMINE 1.5 MG/72 HR PATCH TD SCH (18:55)
--- NOTE | 2017-03-31 19:05 | NUR ---
RCV'D PT ON 4 L NC BS CRACKLES RR 24 SHALLOW BREATHING. HHN TX GIVEN. FAMILY AND IRIS REYNOLDS AT BEDSIDE. WILL CONTINUE TO MONITOR.
--- NOTE | 2017-03-31 19:10 | NUR ---
ENDORSED CARE OF PT TO FACING BASTER JUMPBASTING NURSE AT BEDSIDE. PT IN STABLE CONDITION.
--- NOTE | 2017-03-31 19:11 | NUR ---
RECEIVED REPORT, ASSUMED CARE. PT SLEEPING, AROUSABLE TO TACTILE AND PAIN STIMULI. LABORED BREATHING NOTED, NO S/S OF RESPIRATORY DISTRESS AT THIS TIME. CONTINUE ON O2 AT 4L VIA NASAL CANNULA. FAMILY MEMBERS VISITING AT BEDSIDE.REECE CATH IN PLACE, DRAINING YELLOW URINE OUTPUT. IVF NS INFUSING WELL AT 60ML/HR. IV ACCESS TO LT AC GAUGE 20. ALL NEEDS ANTICIPATED. CALL LIGHT WITHIN REACH. WILL CONTINUE TO MONITOR
--- NOTE | 2017-03-31 19:12 | NUR ---
PT CURRENTLY ON BREATHING TX, TOLERATING WELL. CONGESTION OBSERVED, SUCTIONED BY RT. HEAD ELEVATED TO SEMI ARELLANO'S POSITION. NGT IN PLACE. WILL CONTINUE TO MONITOR.
--- NOTE | 2017-03-31 19:20 | NUR ---
DR. ROBLERO SPOKE WITH DIONNA(DAUGHTER) ALONG WITH FAMILY MEMBERS WHO ARE PRESENT. PER FAMILY, THEY REQUESTED TO HAVE MORPHINE DRIP FOR THE PATIENT. FAMILY MEMBERS ALL AGREED "NO CHEST COMPRESSION" AND THEY JUST WANT TO MAKE THE PATIENT COMFORTABLE. DR. ROBLERO DISCUSSED ABOUT THE MORPHINE DRIP(RISK/BENEFITS/SE), ALL QUESTIONS WERE ANSWERED BY MD. FAMILY ASKED IF PT WILL BE SEND BACK TO SNF, MD STATES, "HE MIGHT NOT MAKE IT." DIONNA AND WHOLE FAMILY MEMBERS VERBALIZED UNDERSTANDING AND AGREED TO HAVE PT JUST STAY IN THE HOSPITAL. DR. ROBLERO DISCONTINUED ALL THE MEDS AND ORDERED MORPHINE DRIP. WILL CARRY OUT ORDER.
[2017-03-31] MEDS ORDERED: ACETAMINOPHEN 325 MG TAB PO PRN (19:30)
--- NOTE | 2017-03-31 19:45 | NUR ---
SPOKE WITH CHARGE NURSE RE: MORPHINE DRIP ORDER, MEDICATION UNAVAILABLE AT THIS TIME. NOTIFIED RN DATABASE DESIGN ANALYST. AWAITING FOR THE MED.
[2017-03-31] MEDS ORDERED: METOPROLOL 25 MG TAB PO SCH (21:00)
[2017-03-31] MEDS ORDERED: traZODone 50 MG TAB NG SCH (21:00)
[2017-03-31] MEDS ORDERED: METOPROLOL 25 MG TAB NG SCH (21:00)
[2017-03-31] MEDS ORDERED: SIMVASTATIN 20 MG TAB NG SCH (21:00)
[2017-03-31] MEDS ORDERED: BENZTROPINE 1 MG TAB NG SCH (21:00)
[2017-03-31] MEDS ORDERED: MORPHINE SULFATE 10 MG/ML SYR ONE (21:05)
[2017-03-31] MEDS: MORPHINE SULFATE 50 MG in NACL 0.9% 45 ML IV PRN ×2 (21:21→22:15)
--- NOTE | 2017-03-31 21:21 | NUR ---
STARTED PT ON MORPHINE DRIP 2MG ORDERED. PT OBSERVED MOANING WITH FACIAL GRIMACING, LABORED BREATHING. DR. VANN PRESENT IN THE ROOM. DISCUSSED PLAN OF CARE. FAMILY VERBALIZED UNDERSTANDING. WILL CONTINUE TO MONITOR.
--- NOTE | 2017-03-31 22:15 | NUR ---
PT CONTINUES TO HAVE SOB, MOANING AND WITH FACIAL GRIMACING ESPECIALLY WHEN BEING TOUCHED. PT AWAKENS AND SPEAKS TO FAMILY MEMBERS. VS TEMP- 96.7, BP-107/57, HR-123, RESP-32, O2 SAT 99% ON O2 AT 3L VIA NC. TITRATED MORPHINE TO 4MG ORDERED. DR. LEE PRESENT IN THE ROOM, MADE AWARE AND SHE VERIFIED WITH DR. VANN, OKAYED TO INCREASE THE MORPHINE DOSE. DR. LEE DISCUSSED THE TITRATION OF MORPHINE TO MELINA(DAUGHTER), SHE VERBALIZED UNDERSTANDING AND APPRECIATION. WILL CONTINUE TO MONITOR PT.
--- NOTE | 2017-03-31 22:35 | NUR ---
REPOSITIONED PT FOR COMFORT. PT MORE CALMER AT THIS TIME. HOB ON SEMI ARELLANO'S POSITION. NO RESPIRATORY DISTRESS AT THIS TIME. DR. VANN AND BERNARDINO PRESENT IN THE ROOM. WILL KEEP MORPHINE 4MG FOR NOW. MELINA AWARE AND VERBALIZED UNDERSTANDING.
--- NOTE | 2017-03-31 23:00 | NUR ---
PT INTERMITTENTLY TALKING TO THE FAMILY. PT STILL WITH SOB BUT NO SIGNS OF RESPIRATORY DISTRESS AT THIS TIME. DR. LEBRON PRESENT IN THE ROOM. NO CHANGE IN MORPHINE AT THIS TIME.
--- NOTE | 2017-03-31 23:30 | NUR ---
PT CONTINUES TO BE TACHYCARDIA 119 AND TACHYPNEA 35. OTHERWISE, PT LOOKS STABLE. NO CHANGE IN MORPHINE DRIP AT THIS TIME. DR. LEBRON PRESENT IN THE UNIT AND AWARE.
[2017-04-01] VITALS: BP 103/54
--- NOTE | 2017-04-01 00:47 | NUR ---
PT SLEEPING, NO FACIAL GRIMACING OR MOANING INDICATING PAIN AT THIS TIME. CARAMEL MAKER SHOWS 125 BPM,PT NOT IN RESPIRATORY DISTRESS. WILL CONTINUE TO MONITOR.
--- NOTE | 2017-04-01 01:08 | NUR ---
SUCTIONED PT PER DR. LEBRON'S ORDER. OBTAINED VERY MINIMAL THICK SECRETIONS. PT WAS BITING THE YANKAUER WHILE WHILE SUCTIONING. HR STILL SHOWS 125. NO CHANGE IN MORPHINE DOSE PER MD PT LOOKS STABLE AND NOT IN DISTRESS. WILL CONTINUE TO MONITOR.
[2017-04-01] MEDS: MORPHINE SULFATE 50 MG in NACL 0.9% 45 ML IV PRN ×2 (02:36→03:30)
--- NOTE | 2017-04-01 02:37 | NUR ---
COVERING FOR PT'S PRIMARY RN AT THIS TIME. PER VERBAL ORDER BY DR VANN, INCREASED THE RATE OF MORPHINE DRIP TO 6ML/HR WITH EDUCATION TO PT AND PT'S FAMILY. PT BP 90/52, HR 125, SPO2 96%. WILL ENDORSE TO PT'S PRIMARY RN WHEN SHE IS BACK FROM BREAK.
--- NOTE | 2017-04-01 02:45 | NUR ---
RECEIVED REPORT FROM COVERING RN. MORPHINE AT 6ML/HR AT THIS TIME PER DR. VANN'S ORDER. PT OBSERVED WITH AGONAL BREATHING, TACHYPNEIC (RESP- 38). COMFORT MEASURES PROVIDED. WILL CONTINUE TO MONITOR.
--- NOTE | 2017-04-01 03:06 | NUR ---
PT HAVING SVT AT THIS TIME HR 157 ON CBX OPERATOR. BP 68/45 RESP [address] 93%. [address]. VANN MADE AWARE. WILL SEE PT IN A FEW MINUTES.
--- NOTE | 2017-04-01 03:20 | NUR ---
DR. VANN CAME AND EXAMINED THE PT WITH NEW ORDER TO INCREASE MORPHINE DRIP TO 8MG. WILL CARRY OUT ORDER. VS BP 71/48 HR 157 RESP 31 O2 SAT 90% TEMP 96.5.
[2017-04-01 04:00] VITALS: BP 71/49
[2017-04-01] MEDS ORDERED: MORPHINE SULFATE 10 MG/ML SYR ONE (04:15)
--- NOTE | 2017-04-01 04:30 | NUR ---
PATIENT'S HR TO TELE MONITOR SHOWS 127-130. PT SLEEPING WITH AGONAL BREATHING. CONTINUE TO PROVIDE COMFORT MEASURES. FAMILY AT BEDSIDE. WILL CONTINUE TO MONITOR.
--- NOTE | 2017-04-01 05:46 | NUR ---
PT CONTINUES TO HAVE AGONAL BREATHING WITH A HR OF 124, BP 65/38, TEMP 96.8, RESP 29, O2 SAT 84%. CONTINUE ON MORPHINE DRIP AT 8MG ORDERED. WILL CONTINUE TO MONITOR.
--- NOTE | 2017-04-01 06:10 | NUR ---
TELE MONITOR SHOWS HEART RATE OF 70s-90s. PT NOT IN RESPIRATORY DISTRESS AT THIS TIME. WILL CONTINUE TO MONITOR.
--- NOTE | 2017-04-01 06:30 | NUR ---
TELE MONITOR SHOWS PATIENT'S HR FLUCTUATES TO 32-40s. DR. VANN AWARE. WILL COME DOWN TO SEE THE PT. PT NOT BREATHING AT THIS TIME, LOOKS PALE. UNABLE TO OBTAIN VITAL SIGNS. FAMILY AT BEDSIDE, PROVIDED COMFORT.
--- NOTE | 2017-04-01 06:31 | NUR ---
TELE MONITOR SHOWS HEART RATE FLAT LINE. PHONE DR. VANN, ON HIS WAY TO THE UNIT.
--- NOTE | 2017-04-01 06:34 | NUR ---
DR. VANN AT BEDSIDE, TIME OF 0634. PROVIDED COMFORT FOR THE FAMILY AND ALLOWED THEM TO BE WITH THE PATIENT.
--- NOTE | 2017-04-01 06:55 | NUR ---
SPOKE WITH DARIUS FROM [facility] MADE AWARE OF PT EXPIRING. CASE CLOSED #[id number]
--- NOTE | 2017-04-01 07:04 | NUR ---
CALL PLACED TO [facility], MESSAGE LEFT TO VOICEMAIL. WILL ENDORSE TO THE NEXT SHIFT.
--- NOTE | 2017-04-01 07:15 | NUR ---
RECEIVED REPORT FROM IRIS DAMON. PT THIS [id number]/17 AT 0634, FAMILY IS AT BEDSIDE AT THIS TIME, PER NELSON SHE DID CALL [facility] AT [phone] AND LEFT A MESSAGE.
--- NOTE | 2017-04-01 07:35 | NUR ---
BRENDA FROM [facility](FAMILY[facility] CHOICE) CALLED BACK, PT INFORMATION GIVEN. BRENDA STATES SHE'LL SEND SOMEONE TO TIE TAPE MACHINE OPERATOR THE BODY. ENDORSED TO NEXT SHIFT FOR POST MORTEM CARE AND COMPLETION OF RELEASE OF REMAINS.
--- NOTE | 2017-04-01 08:11 | NUR ---
CALLED CONSULTING PSYCHOLOGIST AT [phone], I REACHED THEIR VOICEMAIL I LET THEM KNOW I WAS CALLING FROM [facility] REGARDING A PATIENT WHO THIS MORNING, I ASKED THEM TO PLEASE GIVE ME A CALL, I LEFT MY NAME, CALL BACK NUMBER WITH MY EXTENSION.
--- NOTE | 2017-04-01 08:30 | NUR ---
REMOVED THE PATIENT'S IV, REMOVED THE PATIENT'S REECE CATHETER, PATIENT WAS GIVEN A CLEAN GOWN AND WAS GIVEN A BED BATH.
[2017-04-01] MEDS ORDERED: LACTOBACILLUS RHAMNOSUS GG 1 EACH CAP NG SCH (09:00)
[2017-04-01] MEDS ORDERED: CLOPIDOGREL 75 MG TAB NG SCH (09:00)
--- NOTE | 2017-04-01 09:00 | NUR ---
UNABLE TO REACH INSIDE METER TESTER'S OFFICE , LEFT A MESSAGE REGARDING PT'S TIME OF . NOTIFIED AUTOMOTIVE MACHINIST CONNER . PER HOUSE SUP IT IS OK TO RELEASE THE BODY TO MORTUARY BUT TO NOTIFY THERE IS NO INSIDE METER TESTER'S CASE NUMBER.
--- NOTE | 2017-04-01 09:30 | NUR ---
BODY WAS RELEASED TO [facility] IN [place], FAMILY IS AT BEDSIDE.
[2017-04-01] MEDS ORDERED: DILTIAZEM 25 MG/5 ML VIAL IVP SCH (10:02)
--- NOTE | 2017-04-03 08:46 | NUR ---
LORRY WEIGHER note (discharge summary) S: Pt was provided with bedside swallow evaluation on 03/30/2017. O/A: Per bedside swallow evaluation: pt was recommended for NPO, oral cares, with consideration for alternate method(s) of nutrition/hydration/medication, as appropriate. P: Pt on 04/01/2017. G8996 CM G8997 CN G8998 CN NOMS Level 7
== END 2017-04-01 09:30 | disposition expired | DRG 871 ==
LOC: MED 13:09 → MTU 15:56
PROVIDERS: ADMIT Family Medicine; ATTEND Family Medicine
DX: A41.89 Other specified sepsis (principal); J69.0 Pneumonitis due to inhalation of food and vomit; G93.41 Metabolic encephalopathy; N17.0 Acute kidney failure with tubular necrosis; E43 Unspecified severe protein-calorie malnutrition; J96.01 Acute respiratory failure with hypoxia; I50.43 Acute on chronic combined systolic (congestive) and diastolic (congestive) heart failure; N39.0 Urinary tract infection, site not specified; F03.91 Unspecified dementia, unspecified severity, with behavioral disturbance; I47.1 Supraventricular tachycardia; I42.2 Other hypertrophic cardiomyopathy; I46.9 Cardiac arrest, cause unspecified; Z66 Do not resuscitate; R65.20 Severe sepsis without septic shock; F29 Unspecified psychosis not due to a substance or known physiological condition; G20 Parkinson's disease; G47.00 Insomnia, unspecified; E78.5 Hyperlipidemia, unspecified; M19.90 Unspecified osteoarthritis, unspecified site; F10.21 Alcohol dependence, in remission; E87.6 Hypokalemia; I25.10 Atherosclerotic heart disease of native coronary artery without angina pectoris; Z51.5 Encounter for palliative care; I11.0 Hypertensive heart disease with heart failure; Z79.899 Other long term (current) drug therapy; R73.03 Prediabetes
CPT/HCPCS: 36415; 36600; 51702; 71010; 80048; 80053; 80202; 81001; 82150; 82550; 82553; 82803; 82948; 83036; 83605; 83690; 83735; 83874; 83880; 84100; 84436; 84443; 84479; 84484; 85025; 85610; 85730; 87040; 87070; 87081; 87086; 87186; 87205; 89220; 92526; 93005; 94640; 96365; 96367; 97799; 99291; C1758; C9113; J0456; J0696; J1200; J1940; J1956; J2250; J2270; J2310; J3010; J3370; J3480; J3490; J7030; J7060; J7120; J7613; J7620; J7626; Q0092